=== PATIENT | female | born 2000 | race Caucasian/White ===

== ENCOUNTER 2020-03-22 06:21 | Inpatient (IN) ==
[2020-03-22] MEDS ORDERED: ANCEF 1 GRAM IV PREMIX* 1 G/50 ML BAG IV ONE (06:26)
[2020-03-22] MEDS: LR 1000 ML IV 1,000 ML IV ONE ×2 (06:26→07:10)
[2020-03-22] MEDS ORDERED: LR 1000 ML IV 1,000 ML IV ONE (06:35)
[2020-03-22] MEDS ORDERED: ANCEF VIAL 1 GRAM IVP ONE (06:35)
[2020-03-22] MEDS: DILAUDID INJ ONE ×2 (07:18→09:47)
[2020-03-22] MEDS ORDERED: EPHEDRINE SULFATE INJ ONE (07:25)
[2020-03-22] MEDS ORDERED: DIPRIVAN VIAL ONE (07:25)
[2020-03-22] MEDS ORDERED: VERSED ONE (07:25)
[2020-03-22 08:22] LABS: BILIRUBIN,URINE NEGATIVE (NEGATIVE); BLOOD/HEMOGLOBIN,URINE NEGATIVE (NEGATIVE); GLUCOSE, URINE NEGATIVE (NEGATIVE); KETONES,URINE NEGATIVE (NEGATIVE); LEUKOCYTE ESTERASE ,URINE 2+ (NEGATIVE); NITRITES,URINE NEGATIVE (NEGATIVE); PROTEIN,URINE NEGATIVE (NEGATIVE); UROBILINOGEN,URINE 2+ (NORMAL)
[2020-03-22] MEDS ORDERED: BENADRYL INJ 50 MG VIAL IVP PRN (08:48)
[2020-03-22] MEDS ORDERED: REGLAN INJ 10 MG VIAL IVP PRN ×2 (08:48→09:41)
[2020-03-22] MEDS ORDERED: ZOFRAN INJ 4 MG VIAL IVP PRN ×2 (08:48→09:41)
[2020-03-22] MEDS ORDERED: PHENERGAN INJ 25 MG IM PRN (08:48)
[2020-03-22 08:52] LABS: APPEARANCE,URINE HAZY (CLEAR); COLOR,URINE YELLOW (YELLOW)
[2020-03-22 08:53] LABS: BACTERIA,URINE TRACE /HPF (NEGATIVE); RBC,URINE 0-2 /HPF (0-3); SQUAMOUS EPITHELIAL CELL,UR FEW /HPF (NEGATIVE)
[2020-03-22 08:54] LABS: MUCUS,URINE FEW /HPF (NEGATIVE)
[2020-03-22] MEDS ORDERED: D5 1/2 NS 1000 ML 1,000 ML with PITOCIN 20 UNITS IV SCH ×2 (09:41)
[2020-03-22] MEDS ORDERED: PERCOCET TAB 5/325 MG PO PRN (09:41)
[2020-03-22] MEDS ORDERED: ADACEL or BOOSTRIX TDaP VACCINE IM ONE (09:41)
[2020-03-22] MEDS ORDERED: MYLICON TAB 80 MG CHEW PO PRN (09:41)
[2020-03-22] MEDS ORDERED: NARCAN INJ IVP PRN (09:41)
[2020-03-22] MEDS: PRENATAL PLUS PO SCH (10:39)
[2020-03-22] MEDS: PROTONIX TAB 40 MG PO SCH (10:39)
[2020-03-22] MEDS: BENADRYL INJ 50 MG VIAL IVP PRN ×2 (10:39→12:03)
[2020-03-22] MEDS ORDERED: NS IRRIGATION* 1,000 ML ONE (14:46)
[2020-03-22] MEDS: TORADOL 30 MG VIAL IVP PRN (16:07)
[2020-03-23] MEDS: TORADOL 30 MG VIAL IVP PRN (02:38)
[2020-03-23 05:44] LABS: HEMATOCRIT 25.4 % (36.0-47.0); HEMOGLOBIN 8.2 g/dL (12.0-16.0)
[2020-03-23] MEDS ORDERED: MOTRIN TAB 800 MG PO PRN (06:01)
[2020-03-23] MEDS: FERROUS GLUCONATE PO SCH ×2 (06:53→18:16)
[2020-03-23] MEDS: PRENATAL PLUS PO SCH ×2 (08:26→08:28)
[2020-03-23] MEDS: PROTONIX TAB 40 MG PO SCH (08:26)
[2020-03-23] MEDS: COLACE CAP 100 MG PO SCH ×2 (08:26→20:49)
[2020-03-23] MEDS: PERCOCET TAB 5/325 MG PO PRN ×2 (08:30→20:49)
[2020-03-23] MEDS: BACTROBAN TOPICAL OINT TOP SCH ×2 (13:59→22:35)
[2020-03-24] MEDS: PERCOCET TAB 5/325 MG PO PRN (04:04)
[2020-03-24] MEDS: BACTROBAN TOPICAL OINT TOP SCH (05:58)
[2020-03-24] MEDS: FERROUS GLUCONATE PO SCH (05:59)
[2020-03-24 08:15] VITALS: BP 107/75
[2020-03-24] MEDS: COLACE CAP 100 MG PO SCH (09:27)
[2020-03-24] MEDS: PROTONIX TAB 40 MG PO SCH (09:27)
[2020-03-24] MEDS: PRENATAL PLUS PO SCH (09:27)
== END 2020-03-24 11:25 | disposition home or self-care (01) | DRG 788 ==
LOC: LD 06:21 → MED/SURG 09:34
PROVIDERS: ADMIT Specialist; ATTEND Specialist
DX: Z37.0 Single live birth; O99.613 Diseases of the digestive system complicating pregnancy, third trimester; Z01.818 Encounter for other preprocedural examination; O34.211 Maternal care for low transverse scar from previous cesarean delivery; Z3A.39 39 weeks gestation of pregnancy; N85.8 Other specified noninflammatory disorders of uterus; O99.013 Anemia complicating pregnancy, third trimester; D50.8 Other iron deficiency anemias

== ENCOUNTER 2022-08-07 06:31 | Inpatient (IN) ==
[2022-08-07] MEDS ORDERED: ANCEF VIAL 1 GRAM IVP ONE (06:46)
[2022-08-07] MEDS ORDERED: ANCEF VIAL 1 GRAM ONE (06:50)
[2022-08-07] MEDS ORDERED: LR 1,000 ML IV 1,000 ML IV ONE (06:50)
[2022-08-07] MEDS ORDERED: NS 100 ML IV 100 ML ONE (06:50)
[2022-08-07] MEDS ORDERED: XYLOCAINE 2 % (PLAIN) ONE (07:24)
[2022-08-07] MEDS ORDERED: PITOCIN ONE ×2 (07:24→08:25)
[2022-08-07] MEDS ORDERED: MARCAINE SPINAL ONE (07:24)
[2022-08-07] MEDS ORDERED: DILAUDID INJ ONE (07:25)
[2022-08-07] MEDS ORDERED: VERSED ONE (07:26)
[2022-08-07] MEDS ORDERED: ZOFRAN INJ 4 MG VIAL ONE (08:26)
[2022-08-07] MEDS ORDERED: D5 1/2 NS 1,000 ML 1,000 ML IV ONE (08:26)
[2022-08-07] MEDS ORDERED: REGLAN INJ 10 MG VIAL IVP PRN ×2 (08:55→09:21)
[2022-08-07] MEDS ORDERED: ZOFRAN INJ 4 MG VIAL IVP PRN ×2 (08:55→09:21)
[2022-08-07] MEDS ORDERED: BENADRYL INJ 50 MG VIAL IVP PRN (08:55)
[2022-08-07] MEDS ORDERED: BARHEMSYS INJ IVP PRN (08:55)
[2022-08-07] MEDS ORDERED: ADACEL or BOOSTRIX TDaP VACCINE IM ONE (09:21)
[2022-08-07] MEDS ORDERED: MYLICON TAB 80 MG CHEW PO PRN (09:21)
[2022-08-07] MEDS ORDERED: NARCAN INJ IVP PRN (09:21)
[2022-08-07] MEDS ORDERED: PERCOCET TAB 5/325 MG PO PRN (09:21)
[2022-08-07] MEDS ORDERED: D5 1/2 NS 1,000 ML 1,000 ML with PITOCIN 20 UNITS IV SCH ×2 (10:00)
[2022-08-07] MEDS: BENADRYL INJ 50 MG VIAL IVP PRN ×2 (10:36→21:12)
[2022-08-07] MEDS: D5 1/2 NS 1,000 ML 1,000 ML IV SCH ×3 (12:06→22:21)
[2022-08-07] MEDS: TORADOL 30 MG VIAL IVP PRN ×2 (12:13→17:09)
[2022-08-08] MEDS: TORADOL 30 MG VIAL IVP PRN (02:45)
[2022-08-08 05:13] LABS: HEMATOCRIT 22.8 % (36.0-47.0); HEMOGLOBIN 7.2 g/dL (12.0-16.0)
[2022-08-08] MEDS: D5 1/2 NS 1,000 ML 1,000 ML IV SCH ×3 (06:26→22:02)
[2022-08-08] MEDS ORDERED: PERCOCET TAB 5/325 MG PO PRN (07:39)
[2022-08-08] MEDS: COLACE CAP 100 MG PO SCH ×2 (09:34→21:50)
[2022-08-08] MEDS: PROTONIX TAB 40 MG PO SCH (09:35)
[2022-08-08] MEDS: MOTRIN TAB 800 MG PO PRN ×2 (09:35→19:40)
[2022-08-08] MEDS: PRENATAL PLUS PO SCH (09:35)
[2022-08-08] MEDS: BACTROBAN TOPICAL OINT TOP SCH ×2 (14:56→21:51)
[2022-08-08] MEDS: FERROUS GLUCONATE PO SCH (19:40)
[2022-08-09] MEDS: D5 1/2 NS 1,000 ML 1,000 ML IV SCH (06:01)
[2022-08-09] MEDS: FERROUS GLUCONATE PO SCH (06:04)
[2022-08-09] MEDS: BACTROBAN TOPICAL OINT TOP SCH (06:05)
[2022-08-09 08:03] VITALS: BP 128/73
[2022-08-09] MEDS: PRENATAL PLUS PO SCH (08:48)
[2022-08-09] MEDS: COLACE CAP 100 MG PO SCH (08:48)
[2022-08-09] MEDS: PROTONIX TAB 40 MG PO SCH (08:48)
[2022-08-09] MEDS: MOTRIN TAB 800 MG PO PRN (08:49)
== END 2022-08-09 12:10 | disposition home or self-care (01) | DRG 785 ==
LOC: LD 06:31 → MED/SURG 09:04
PROVIDERS: ADMIT Specialist; ATTEND Specialist
DX: Z01.812 Encounter for preprocedural laboratory examination; D50.8 Other iron deficiency anemias; O99.613 Diseases of the digestive system complicating pregnancy, third trimester; Z37.0 Single live birth; Z30.2 Encounter for sterilization; K21.9 Gastro-esophageal reflux disease without esophagitis; R79.89 Other specified abnormal findings of blood chemistry; Z3A.38 38 weeks gestation of pregnancy; O99.013 Anemia complicating pregnancy, third trimester